=== PATIENT | female | born 1980 | race Hispanic/Latino ===

== ENCOUNTER 2018-08-26 13:02 | Emergency (ER) | payer BC ==
[2018-08-26] MEDS ORDERED: HYDROCODONE/ACETAMINOPHEN 5/325 MG TAB ONE (16:30)
[2018-08-26] MEDS ORDERED: KETOROLAC TROMETHAMINE 15MG/ML ONE (16:30)
== END 2018-08-26 17:07 | disposition home or self-care (01) ==
LOC: EDH 13:02
DX: G97.1 Other reaction to spinal and lumbar puncture (principal); Y84.4 Aspiration of fluid as the cause of abnormal reaction of the patient, or of later complication, without mention of misadventure at the time of the procedure; Y92.89 Other specified places as the place of occurrence of the external cause; Z98.890 Other specified postprocedural states
CPT/HCPCS: 96374; 99284; J1885